=== PATIENT | female | born 1950 | race Caucasian/White ===

== ENCOUNTER 2017-06-14 00:28 | Observation (INO) | payer MEDICARE ==
[2017-06-14] VITALS (7 sets, daily range): BP systolic 106–180; BP diastolic 43–90
[~2017-06-14] VITALS: Ht 175.3 cm; Wt 88.5 kg
[2017-06-14 00:49] LABS: BASOPHILS % 0.7 % (0.0-1.0); EOSINOPHILS # (AUTO) 0.2 (0.0-0.4); EOSINOPHILS % 3.9 % (0.0-6.0); HEMATOCRIT 34.9 % (34.2-44.1); HEMOGLOBIN 11.5 g/dL (12.0-16.0); MEAN CORPUSCULAR HEMOGLOBIN 31.2 pg (28-32); MEAN CORPUSCULAR VOLUME 94.6 fL (81-99); MONOCYTES # (AUTO) 0.5 (0.2-0.8); MONOCYTES % 8.7 % (4.4-11.3); NEUTROPHILS # (AUTO) 3.1 (2.1-6.9); NEUTROPHILS % 52.5 % (38.7-80.0); PLATELET COUNT 141 x10e3/uL (140-360); RED BLOOD COUNT 3.69 x10e6/uL (3.6-5.1); RED CELL DISTRIBUTION WIDTH 12.9 % (11.7-14.4)
[2017-06-14 01:01] LABS: PARTIAL THROMBOPLASTIN TIME 22.8 seconds (23.8-35.5); PROTHROMBIN TIME 12.4 seconds (11.9-14.5)
[2017-06-14 01:10] LABS: ALANINE AMINOTRANSFERASE 18 IU/L (0-55); ALBUMIN 3.8 g/dL (3.5-5.0); ALBUMIN/GLOBULIN RATIO 1.6 (0.8-2.0); ALKALINE PHOSPHATASE 156 IU/L (40-150); ANION GAP 13.9 mmol/L (8-16); BLOOD UREA NITROGEN 22 mg/dL (7-26); BUN/CREATININE RATIO 20 (6-25); CALCIUM 9.1 mg/dL (8.4-10.2); CARBON DIOXIDE 25 mmol/L (22-29); CHLORIDE 102 mmol/L (98-107); CREATINE KINASE 52 IU/L (29-168); EST GLOMERULAR FILTRATION RATE 50 ML/MIN (60-); GLUCOSE 111 mg/dL (74-118); POTASSIUM 3.9 mmol/L (3.5-5.1); SODIUM 137 mmol/L (136-145)
[2017-06-14] MEDS ORDERED: BUSPIRONE HCL10 MG PO (01:47)
[2017-06-14] MEDS ORDERED: AMLODIPINE BESY10 MG PO (01:47)
[2017-06-14] MEDS ORDERED: OXCARBAZEPINE600 MG PO (01:47)
[2017-06-14] MEDS ORDERED: LEVOTHYROXINE88 MCG PO (01:47)
[2017-06-14] MEDS ORDERED: CLONAZEPAM1 MG PO (01:47)
[2017-06-14] MEDS ORDERED: BUSPIRONE HCL15 MG PO (01:47)
[2017-06-14] MEDS ORDERED: QUETIAPINE FUM100 MG PO (01:47)
[2017-06-14] MEDS ORDERED: BENICAR40 MG PO (01:47)
[2017-06-14] MEDS ORDERED: FLUOXETINE HCL20 MG PO (01:47)
[2017-06-14] MEDS ORDERED: GABAPENTIN300 MG PO (01:47)
[2017-06-14] MEDS ORDERED: PRAVASTATIN SOD20 MG PO (01:47)
[2017-06-14] MEDS ORDERED: FLUOXETINE HCL40 MG PO (01:47)
--- NOTE | 2017-06-14 01:54 | Diagnostic Imaging Report ---
EXAMINATION: CHEST SINGLE (PORTABLE) INDICATION: Syncopal episode COMPARISON: None FINDINGS: TUBES and LINES: None. LUNGS: Lungs are well inflated. Lungs are clear. There is no evidence of pneumonia or pulmonary edema. PLEURA: No pleural effusion or pneumothorax. HEART AND MEDIASTINUM: The cardiomediastinal silhouette is unremarkable. BONES AND SOFT TISSUES: No acute osseous lesion. Soft tissues are unremarkable. UPPER ABDOMEN: No free air under the diaphragm. IMPRESSION: No acute thoracic abnormality. Signed by: Dr. Rayo Shah M.D. on 06/14/2017 1:50 AM
[2017-06-14 01:57] LABS: BILIRUBIN,URINE NEGATIVE (NEGATIVE); CLARITY,URINE CLEAR (CLEAR); COLOR,URINE YELLOW (YELLOW); KETONES,URINE NEGATIVE (NEGATIVE); LEUKOCYTE ESTERASE ,URINE NEGATIVE (NEGATIVE); NITRITE,URINE NEGATIVE (NEGATIVE); PROTEIN,URINE DIPSTICK NEGATIVE (NEGATIVE); URINE UROBILINOGEN 0.2 mg/dL (0.2 - 1)
--- NOTE | 2017-06-14 02:25 | Diagnostic Imaging Report ---
Examination: CT head without contrast Clinical Indication: Syncope. Technique: Transaxial noncontrast images from the skull base through the vertex were obtained. Sagittal and coronal reformatted images were done. Comparison: None. Findings: Scalp: No abnormalities. Bones: Intact. No fractures. No blastic or lytic lesions. Brain sulci: Mild volume loss for patient's age. Ventricles: No hydrocephalus. Extra-axial space: No abnormalities. Parenchyma: There are mild confluent areas of low-attenuation within subcortical and periventricular white matter, nonspecific, but could represent microvascular ischemic disease. Chronic lacunar infarct of the anterior limb of the left internal capsule. No masses, hemorrhage, or acute or chronic cortical based vascular insults. Suprasellar region: No abnormalities. Craniocervical junction: The foramen magnum is patent. No Chiari one malformation. Impression: 1. No acute intracranial finding. 2. Mild chronic microvascular ischemic change and volume loss. Signed by: Dr. Christen Oliveira M.D. on 06/14/2017 2:21 AM
[2017-06-14] MEDS ORDERED: ONDANSETRON HCL INJ 2 MG/ML VIAL IV PRN ×4 (02:45→15:15)
--- OUTSIDE RECORDS SUMMARY | 2017-06-14 02:46 | XMS REPORT ---
Author Author [facility] Address Unknown Phone Unavailable Care Team Providers Care Swahili Teacher Name Role Phone ALEC NÚÑEZ Unavailable Unavailable Problems This patient has no known problems. Allergies, Adverse Reactions, Alerts This patient has no known allergies or adverse reactions. Medications This patient has no known medications. Results Test Description Test Time Test Comments Text Results Atomic Results Result Comments CHEST SINGLE (PORTABLE) [place] [id number] Patient Name: MARTELL DELANEY MR #: [id number] : 1950 Age/Sex: 66/F Req #: [id number] Adm Physician: Ordered by: ALEC NÚÑEZ MD Report #: [id number] Location: ER Room/Bed: ___ Procedure: [id number] DX/CHEST SINGLE (PORTABLE) Exam Date: 06/14/17 Exam Time: 0100 REPORT STATUS: Signed EXAMINATION: CHEST SINGLE (PORTABLE) INDICATION: Syncopal episode COMPARISON: None FINDINGS: TUBES and LINES: None. LUNGS: Lungs are well inflated. Lungs are clear. There is no evidence of pneumonia or pulmonary edema. PLEURA: No pleural effusion or pneumothorax. HEART AND MEDIASTINUM: The cardiomediastinal silhouette is unremarkable. BONES AND SOFT TISSUES: No acute osseous lesion. Soft tissues are unremarkable. UPPER ABDOMEN: No free air under the diaphragm. IMPRESSION: No acute thoracic abnormality. Signed by: Dr. Rayo Shah M.D. on 06/14/2017 1:50 AM Dictated By: RAYO CRUZ MD 9 COPY TO: ALEC NÚÑEZ MD CT BRAIN WO [place] [address] Patient Name: MARTELL DELANEY MR #: [id number] : 1950 Age/Sex: 66/F Req #: [id number] Adm Physician: Ordered by: ALEC ÚNÑEZ MD Report #: [id number] Location: ER Room/Bed: Procedure: [id number] CT/CT BRAIN WO Exam Date: 06/14/17 Exam Time: 0050 REPORT STATUS: Signed Examination: CT head without contrast Clinical Indication: Syncope. Technique: Transaxial noncontrast images from the skull base through the vertex were obtained. Sagittal and coronal reformatted images were done. Comparison: None. Findings: Scalp: No abnormalities. Bones: Intact. No fractures. No blastic or lytic lesions. Brain sulci: Mild volume loss for patient's age. Ventricles: No hydrocephalus. Extra-axial space: No abnormalities. Parenchyma: There are mild confluent areas of low-attenuation within subcortical and periventricular white matter, nonspecific, but could represent microvascular ischemic disease. Chronic lacunar infarct of the anterior limb of the left internal capsule. No masses, hemorrhage, or acute or chronic cortical based vascular insults. Suprasellar region: No abnormalities. Craniocervical junction: The foramen magnum is patent. No Chiari one malformation. Impression: 1. No acute intracranial finding. 2. Mild chronic microvascular ischemic change and volume loss. Signed by: Dr. Christen Oliveira M.D. on 06/14/2017 2:21 AM Dictated By: CHRISTEN SERNA MD 0 Transcribed By: SONALI on 06/14/17220 COPY TO: ALEC NÚÑEZ MD
[2017-06-14] MEDS: SODIUM CHLORIDE 0.9% 1000ML 1,000 ML IV SCH ×2 (02:51→10:52)
[2017-06-14] MEDS ORDERED: SODIUM CHLORIDE 0.9% 1000ML 1,000 ML ONE (02:59)
[2017-06-14 03:15] LABS: BACTERIA,URINE FEW /HPF; EPITHELIAL CELLS,URINE RARE /LPF; RBC,URINE 0-5 /HPF (0-5)
[2017-06-14 08:32] LABS: CREATINE KINASE 47 IU/L (29-168)
[2017-06-14] MEDS ORDERED: AMLODIPINE BESYLATE 5 MG TAB PO SCH ×3 (09:00→17:00)
[2017-06-14] MEDS ORDERED: METOPROLOL SUCCINATE 25 MG TAB XL PO SCH ×3 (09:00→17:00)
[2017-06-14] MEDS ORDERED: AMLODIPINE BESYLATE 5 MG TAB PO ONE (09:00)
[2017-06-14] MEDS ORDERED: METOPROLOL SUCCINATE 25 MG TAB XL PO ONE (09:00)
--- NOTE | 2017-06-14 10:14 | Operative Report ---
DATE OF PROCEDURE: NO DICTATION, LENGTH 0:1 Job#: [id number] RI
--- NOTE | 2017-06-14 10:37 | Consultation ---
DATE OF CONSULTATION: June 14, 2017 CARDIAC CONSULTATION REASON FOR CONSULTATION: Syncope. HISTORY: A 66-year-old lady who is known with hypertension, bipolar disorder and PTSD syndrome, as well as anxiety. The patient yesterday, she was sleepy. She woke up to take a snack. She went to the fridge and then she started feeling not so good. She sat on the floor and then she passed out. There was no seizure activity. There was no incontinence of urine. However, this was not a witnessed episode. Interestingly, she had similar episode 8 months ago where she had a nose fracture, and almost 2 years ago when she had a right ankle fracture. Patient denied having any prior seizure disorder. She denied having any prior cardiac history, i.e., no myocardial infarction. She does have some easy fatigability and shortness of breath on exertion, class early III [place] Heart Association classification. There is no orthopnea and there is no paroxysmal nocturnal dyspnea. There is no history of palpitations. Three episodes total of syncope. There is no recent travel. There is no swelling of the lower extremities. There is no cough. No hemoptysis. REVIEW OF SYSTEMS GENERAL: No fever. No chills. CARDIAC: As per above. PULMONARY: As per above. GI: Chronic constipation. No hematemesis. No melena. She takes MiraLAX sometime for this constipation. Occasional nausea but no vomiting. : Increased frequency of urination, but no hematuria. No dysuria. MUSCULOSKELETAL: Aches and pains in several muscles. NEUROLOGICAL: No seizure activity. No localized weakness. PSYCHIATRIC: The patient is on several medications and several illnesses. SOCIAL HISTORY: She lives with her daughter. She denies smoking or drinking. HOME MEDICATIONS: Long list includin. Metoprolol 50 mg twice a day. 2. Norvasc 10 mg a day. 3. Levothyroxine 88 mcg a day. 4. Benicar 40 mg a day. 5. Pravastatin 20 mg a day. 6. Clonazepam 1 mg a day. 7. 50 mg a day. 8. Paxil 40 mg a day. 9. Neurontin 300 mg t.i.d. 10. Oxcarbazepine 600 mg twice a day. 11. Seroquel 100 mg a day. ALLERGIES: CIPRO. PAST MEDICAL HISTORY 1. Hypertension. 2. Bipolar disorder. 3. PTSD. 4. Anxiety. 5. Tonsillectomy. 6. Appendectomy. 7. Hysterectomy. FAMILY HISTORY: Father of Alzheimer, but had congestive heart failure. He was 74. Mother in her 70s, questionable cause. She does have 6 siblings, 3 brothers and 3 sisters. She does not know much about their health problems. She does have 1 son and 1 daughter who is diabetic. PHYSICAL EXAMINATION VITALS: Height of 5 feet 9 inches, weight of 195 pounds. Blood pressure 136/80, heart rate of 50, respiratory rate of 18, temperature of 96.7 Fahrenheit. HEENT: Pupils are equal and reactive. NECK: No elevation of jugular venous pulsation. No bruit. CHEST: Clear to auscultation and percussion. HEART: PMI in 5th left intercostal space. Normal 1st and 2nd heart sounds. ABDOMEN: Soft. There is good bowel sounds. No organomegaly. No abdominal bruits. EXTREMITIES: No cyanosis. No clubbing. No edema. NEUROLOGIC: Awake, alert and oriented. Neck is supple. No motor or sensory deficits. LAB DATA: Sodium of 137, potassium 3.9, BUN 22, creatinine 1.1. White blood cell count of 5.9, hemoglobin of 11.5, hematocrit 35%, and platelet count of 141,000. EKG showing sinus bradycardia, nonspecific S/T changes. IMPRESSION AND PLAN 1. Syncope. 2. Hypertension. 3. Bipolar disorder/posttraumatic stress disorder and anxiety. 4. Obesity. 5. Poorly compliant. Her syncope is very vague. It is multifactorial. We cannot pinpoint the etiology. Acardiac syncope needs to be ruled out. Patient will be on telemetry. Will get an echocardiogram. Will get carotid Doppler. Patient is really truly on polypharmacy. Regarding her antihypertensive medication, definitely the need to be adjusted and decreased to minimum. Hopefully, that will help with her symptoms. Will get her blood pressure lying, standing and sitting. Will review her echocardiogram, which is already ordered, and will review her carotid Doppler. Differential diagnosis discussed and explained to the patient. Job#: [id number] JE
[2017-06-14] MEDS ORDERED: ACETAMINOPHEN 325 MG TAB PO PRN ×3 (11:15→20:45)
--- NOTE | 2017-06-14 12:36 | History and Physical ---
CHIEF COMPLAINT: Dizziness and passed out. HPI: Mr. Flores is a 66-year-old female. She came to the emergency room because she felt dizzy and passed out on the floor. She reports that she woke up from her sleep and was feeling dizzy. She went to the kitchen and felt more dizzy so she laid down on the floor. Then she does not remember. She passed out. She denies any complaints of chest pain, nausea, vomiting, diarrhea, shortness of breath. She smoked for 20-plus years 2 packs per day. She is being worked up for mild dementia. In the emergency room, she was in sinus bradycardia. She denies any nausea, vomiting, diarrhea or focal weakness. REVIEW OF SYSTEMS GENERAL: Denies any fever or chills. HEAD: Denies any head trauma. ENT: Denies any earache. CVS: Denies any chest pain. RESPIRATORY: Denies any shortness of breath. GI: Denies any nausea or vomiting. OTHER: The rest of the review systems are negative except as in HPI. PAST MEDICAL HISTORY: Hypertension and hypercholesterolemia. SURGICAL HISTORY: Hysterectomy. FAMILY AND SOCIAL HISTORY: Ex-smoker, quit 7 years ago, smoked for 20 years 2 packs per day. Used to work for [employer]. Currently lives with her daughter. She denies any alcohol use. PHYSICAL EXAMINATION VITAL SIGNS: Temperature 96.7. Pulse of 56. Blood pressure 136/88. Respiratory rate of 18. O2 sat 94%. SKIN: Warm and dry. HEENT: Head atraumatic, normocephalic. Pupils are reactive. NECK: Supple. CHEST: Clear to auscultation bilaterally. No wheezing. No crackles. HEART: S1, S2 audible. ABDOMEN: Soft, nontender, nondistended. Bowel sounds audible. EXTREMITIES: No clubbing, cyanosis or edema. NEUROLOGIC: Awake and alert. No focal neurologic deficit. LABS: White count of 5.8, hemoglobin 11.5, platelets 141. Chemistry is within normal limits. Brain CT was done in the emergency room which showed no acute findings. Chest x-ray done in the emergency room showed no acute findings. EKG showing sinus bradycardia. ASSESSMENT: A 66-year-old female with syncope, etiology not very clear. She was bradycardic in the emergency room. Could be just hypoglycemia but she did not eat much overnight. PLAN 1. Cardiology consult. 2. Neurology consult. 3. Continue IV hydration. 4. Continue metoprolol and amlodipine. Job#: [id number]
[2017-06-14] MEDS ORDERED: FLUOXETINE HCL 20 MG CAP PO SCH ×2 (13:30→13:52)
[2017-06-14] MEDS ORDERED: BUSPIRONE HCL 5 MG TAB PO SCH ×2 (13:30→13:51)
[2017-06-14] MEDS ORDERED: SODIUM CHLORIDE 0.9% 1000ML 1,000 ML IV SCH ×3 (14:00→20:45)
[2017-06-14] MEDS ORDERED: GABAPENTIN 300 MG CAP PO SCH ×4 (15:00→21:00)
[2017-06-14 16:40] LABS: CREATINE KINASE 135 IU/L (29-168)
[2017-06-14] MEDS ORDERED: OXCARBAZEPINE 300 MG TAB PO SCH ×3 (17:00)
[2017-06-14] MEDS ORDERED: ONDANSETRON HCL 4 MG ORAL DISINTEGRATING TAB PO PRN ×3 (20:15→22:15)
[2017-06-14] MEDS ORDERED: QUETIAPINE FUMARATE 100 MG TAB PO SCH ×2 (21:00)
[2017-06-14] MEDS ORDERED: CLONAZEPAM 1 MG TAB PO SCH ×2 (21:00)
[2017-06-15] VITALS (7 sets, daily range): BP systolic 102–177; BP diastolic 55–94
[2017-06-15] MEDS: SODIUM CHLORIDE 0.9% 1000ML 1,000 ML IV SCH ×4 (03:19→21:12)
[2017-06-15 05:44] LABS: BASOPHILS # (AUTO) 0.1 (0.0-0.1); EOSINOPHILS # (AUTO) 0.2 (0.0-0.4); EOSINOPHILS % 3.2 % (0.0-6.0); HEMATOCRIT 29.2 % (34.2-44.1); HEMOGLOBIN 9.7 g/dL (12.0-16.0); LYMPHOCYTES # (AUTO) 2.1 (1.0-3.2); LYMPHOCYTES % 39.4 % (18.0-39.1); MEAN CORPUSCULAR HEMOGLOBIN 31.6 pg (28-32); MEAN CORPUSCULAR HGB CONC 33.2 g/dL (31-35); MEAN CORPUSCULAR VOLUME 95.1 fL (81-99); MONOCYTES # (AUTO) 0.4 (0.2-0.8); MONOCYTES % 7.4 % (4.4-11.3); NEUTROPHILS # (AUTO) 2.6 (2.1-6.9); NEUTROPHILS % 48.8 % (38.7-80.0); PLATELET COUNT 129 x10e3/uL (140-360); RED BLOOD COUNT 3.07 x10e6/uL (3.6-5.1); RED CELL DISTRIBUTION WIDTH 13.2 % (11.7-14.4)
[2017-06-15] MEDS ORDERED: LEVOTHYROXINE SODIUM 88 MCG TAB PO SCH ×5 (06:00→09:00)
[2017-06-15] MEDS: LEVOTHYROXINE SODIUM 88 MCG TAB PO SCH (06:00)
[2017-06-15 06:10] LABS: ALANINE AMINOTRANSFERASE 10 IU/L (0-55); ALBUMIN 2.4 g/dL (3.5-5.0); ALBUMIN/GLOBULIN RATIO 1.5 (0.8-2.0); ALKALINE PHOSPHATASE 97 IU/L (40-150); ANION GAP 7.4 mmol/L (8-16); BLOOD UREA NITROGEN 14 mg/dL (7-26); BUN/CREATININE RATIO 21 (6-25); CARBON DIOXIDE 16 mmol/L (22-29); CHLORIDE 119 mmol/L (98-107); CREATININE, SERUM 0.68 mg/dL (0.57-1.11); EST GLOMERULAR FILTRATION RATE > 60 ML/MIN (60-); GLUCOSE 76 mg/dL (74-118); POTASSIUM 3.4 mmol/L (3.5-5.1); SODIUM 139 mmol/L (136-145)
[2017-06-15 06:21] LABS: CALCIUM 6.2 mg/dL (8.4-10.2)
[2017-06-15] MEDS ORDERED: CALCIUM GLUCONATE 10% INJ 0.465 MEQ/ML VIAL ONE (06:51)
[2017-06-15] MEDS ORDERED: SODIUM CHLORIDE 0.9% 50ML 50 ML ONE (06:52)
[2017-06-15] MEDS ORDERED: POTASSIUM CHLORIDE 20 MEQ TAB CR PO ONE (07:15)
[2017-06-15] MEDS ORDERED: CALCIUM GLUCONATE 10% INJ 4.65 MEQ in SODIUM CHLORIDE 0.9% 50ML 50 ML IV ONE (07:30)
[2017-06-15] MEDS ORDERED: FLUOXETINE HCL 20 MG CAP PO SCH (09:00)
[2017-06-15] MEDS ORDERED: BUSPIRONE HCL 5 MG TAB PO SCH ×2 (09:00)
[2017-06-15] MEDS ORDERED: AMLODIPINE BESYLATE 5 MG TAB PO SCH ×2 (09:00)
[2017-06-15] MEDS ORDERED: METOPROLOL SUCCINATE 25 MG TAB XL PO SCH ×2 (09:00)
[2017-06-15] MEDS: ACETAMINOPHEN 325 MG TAB PO PRN ×2 (09:00→21:12)
[2017-06-15] MEDS ORDERED: OXCARBAZEPINE 300 MG TAB PO SCH (09:00)
[2017-06-15] MEDS ORDERED: CLONAZEPAM 1 MG TAB PO SCH ×3 (09:00)
[2017-06-15] MEDS ORDERED: QUETIAPINE FUMARATE 100 MG TAB PO SCH ×3 (09:00)
[2017-06-15] MEDS ORDERED: POTASSIUM CHLORIDE 20 MEQ TAB CR PO PRN (09:45)
[2017-06-15] MEDS: ASPIRIN 81 MG ENTERIC COATED PO SCH (10:30)
[2017-06-15] MEDS: OXCARBAZEPINE 300 MG TAB PO SCH ×2 (10:50→21:12)
[2017-06-15] MEDS: FLUOXETINE HCL 20 MG CAP PO SCH (10:50)
[2017-06-15] MEDS: BUSPIRONE HCL 5 MG TAB PO SCH (10:50)
[2017-06-15] MEDS: GABAPENTIN 300 MG CAP PO SCH ×3 (10:50→21:12)
[2017-06-15 11:05] LABS: FERRITIN 32.64 ng/mL (4.63-204.00)
[2017-06-15 11:09] LABS: FREE THYROXINE INDEX 0.7608 (1.4-3.8)
--- NOTE | 2017-06-15 11:26 | Consultation ---
DATE OF CONSULTATION: June 14, 2017, at 5:30 in the evening. NEUROLOGICAL CONSULTATION ATTENDING PHYSICIAN: Dr. Osvaldo Reeves. REASON FOR CONSULTATION: Syncopal spell. HISTORY OF PRESENT ILLNESS: This is a 66-year-old female with multiple medical problems, who lives with her daughter, and last night apparently around 12:30 in the morning she woke up and went to the kitchen and suddenly started does not feel good, she feels weak, and apparently she passed out. They called the ambulance, and they brought her to the hospital. According to the daughter, there was not any jerking of the arms and legs, no eyes rolled back, no foaming from the mouth, no tongue-biting, no sphincter dysfunction. Patient has had previous episodes of the blackout spell like this. One was several years ago a similar way, woke up in the middle of the night and stood up and then blacked out. At one time she was taken to [facility] where she was there for a couple of days and was seen by a tobacco sample puller and neurologist, and they did not find anything. Then she had the second spell several months ago in which she broke the right foot. The patient has no previous history of seizures and no family history of seizures. She does have multiple medical problems including bipolar disorder which has been followed by tobacco sample puller and several prior psychiatrists. The first episode of general seizures, and the one that was definite seizure was secondary to Xanax withdrawal. The second time, which the daughter said there was tonic-clonic activity and sphincter dysfunction, was secondary to lithium intoxication. Since then she has not had any more seizures and normal blood count until now. One time in one of these spells, the daughter said the ambulance arrived and she was told that her pulse went down to 32. PAST MEDICAL HISTORY: Besides hypertension and bipolar disorder, has anxiety. Has had appendectomy, hysterectomy. MEDICATION SHE HAS BEEN TAKING: Seroquel, BuSpar, clonazepam, Paxil, gabapentin, metoprolol for her blood pressure and Norvasc for her blood pressure. FAMILY HISTORY: No family history of seizures. ALLERGIES: CIPRO. REVIEW OF SYSTEMS: All 12 steps negative except what is described above. GENERAL PHYSICAL EXAMINATION VITAL SIGNS: Blood pressure 130/80, pulse 72 regular, afebrile. LUNGS: Clear to auscultation. HEART: Regular sinus rhythm. There was no murmur. ABDOMEN: Soft. No tenderness. MUSCULOSKELETAL: Lower extremities no edema, no cyanosis, no clubbing. NEUROLOGIC Mental status: According to the daughter, she has some short-term memory. She has been forgetful. As a matter of fact, she has seen a neurologist who feels that she has an early dementia and is going to further cognitive tests to confirm dementia and to start treatment. Speech clear, no dysarthria or dysphagia. Follows commands well. Right/left orientation is normal. Naming body parts and recall is normal. Cranial nerves: Pupils were both equal and reactive. External ocular movements were full. There was no nystagmus. Visual field on confrontation was grossly normal. No facial weakness. Facial sensation normal. Tongue protrudes midline. Motor power: No evidence of weakness in either of the upper extremities. Able to elevate against gravity without any difficulty. On postural holding, we see some fine regular tremor 4-6 Hz in both hands and also regular same type of tremor of both feet. The patient has been diagnosed with possible essential tremor, possible early Parkinson. There is not any problem with the patient moving around. No bradykinesia of the arms or legs. No rigidity. Deep tendon reflexes: Triceps, biceps, radials 1+. Knee jerks 1+. Ankle jerks were absent bilaterally. Plantar stimulation is down bilaterally. HEAD: Normocephalic. NECK: Supple. Carotid pulsations were present bilaterally. There were no bruits. GAIT: Deferred. LABORATORY WORKUP: All has been reviewed in detail. ASSESSMENT: A 66-year-old female with an episode of syncope early this morning with previous history of blackout spell in similar way and one other episode with generalized seizure which apparently was secondary to Xanax withdrawal and another time for lithium intoxication for her bipolar disorder. We discussed about different etiologies of seizures. At one time the daughter mentioned that her heart rate dropped to 32. That is one of the possibilities we are dealing with some cardiac arrhythmia. I do not think we are dealing with any real epileptic seizure, neither evidence to suspect a TIA. She has been worked up before. Everything has been normal. I do not think we need to do any tests at the present time. IMPRESSION 1. Syncopal spell, unspecified. 2. Hypertension, essential. 3. Bipolar disorder. 4. Obesity. 5. Bilateral tremors of the hands and feet, probably essential tremor. RECOMMENDATION: Patient has been already scheduled to see her neurologist. No need to put her on any medication at the present time immediately before the testing. Job#: [id number] EV
[2017-06-15 11:31] LABS: CALCIUM IONIZED 1.2 mmol/L (1.09-1.30)
[2017-06-15] MEDS ORDERED: LIDOCAINE HCL 2% LOCAL 20 ML VIAL ONE (17:34)
[2017-06-15] MEDS ORDERED: IOPAMIDOL 300MG/ML 50ML INFUS..BTL IV ONE (17:34)
[2017-06-15] MEDS ORDERED: SODIUM CHLORIDE 0.9% 1000ML 2,000 ML ONE (17:35)
[2017-06-15] MEDS ORDERED: MIDAZOLAM HCL 2 MG/2 ML VIAL ONE ×2 (17:43→18:01)
[2017-06-15] MEDS ORDERED: BACITRACIN 50,000 UNIT VIAL ONE (17:44)
[2017-06-15] MEDS ORDERED: FENTANYL CITRATE/PF 100MCG/2 ML INJ ONE (17:44)
--- NOTE | 2017-06-15 17:45 | Progress Note ---
DATE: June 15, 2017 NEUROLOGIC PROGRESS NOTE A 66-year-old female with multiple medical problems with diagnosis of syncopal spell, unspecified, many times, hypertension, essential, bipolar disorder, bilateral tremors of hands and feet, most likely essential tremor, and questionable seizures. At the present time, the patient is feeling better. She is being evaluated by cardiology where they found that definitely she has significant bradykinesia with pulse in the range of 30's. She is scheduled for a pacemaker. OBJECTIVE VITAL SIGNS: Blood pressure 152/91, pulse 34, temperature 95.9. NEURO: She is alert. Speech clear. Follows commands well. No episodes of dizziness or syncope today. Moving all 4 extremities symmetrically. No evidence of focal weakness. LABORATORY DATA: CBC: White count 5250, hemoglobin 9.7, hematocrit 29.2, platelets 129,000. Chemistry: Sodium 139, potassium 3.4, BUN 14, creatinine 0.68. Estimated GFR 60. Calcium quite low at 6.2. DIAGNOSIS: As above. Will continue to follow closely. Job#: [id number]
[2017-06-15] MEDS ORDERED: SODIUM CHLORIDE 0.9% 500ML 500 ML ONE (17:46)
[2017-06-15] MEDS ORDERED: VANCOMYCIN 1GM/NS 250 ML 250 ML ONE (17:51)
[2017-06-15] MEDS: CLONAZEPAM 1 MG TAB PO SCH (21:12)
[2017-06-15] MEDS: QUETIAPINE FUMARATE 100 MG TAB PO SCH (21:12)
[2017-06-16 04:00] VITALS: BP 129/74
[2017-06-16] MEDS: LEVOTHYROXINE SODIUM 88 MCG TAB PO SCH (06:07)
[2017-06-16] MEDS: SODIUM CHLORIDE 0.9% 1000ML 1,000 ML IV SCH ×3 (06:07→22:15)
[2017-06-16 08:00] VITALS: BP 158/87
[2017-06-16] MEDS: OXCARBAZEPINE 300 MG TAB PO SCH ×2 (09:00→21:00)
[2017-06-16] MEDS: ASPIRIN 81 MG ENTERIC COATED PO SCH (09:00)
[2017-06-16] MEDS: FLUOXETINE HCL 20 MG CAP PO SCH (09:00)
[2017-06-16] MEDS: BUSPIRONE HCL 5 MG TAB PO SCH (09:00)
[2017-06-16] MEDS: GABAPENTIN 300 MG CAP PO SCH ×3 (09:00→21:00)
[2017-06-16 12:00] VITALS: BP 156/98
--- NOTE | 2017-06-16 12:06 | Operative Report ---
DATE OF PROCEDURE: June 15, 2017 PREPROCEDURE DIAGNOSIS: Symptomatic bradycardia, sinus node dysfunction with dizziness, no reversible causes. POSTPROCEDURE DIAGNOSIS: Symptomatic bradycardia, sinus node dysfunction with dizziness, no reversible causes. ESTIMATED BLOOD LOSS: 5 mL. COMPLICATIONS: None. PROCEDURES PERFORMED 1. Dual-chamber pacemaker placement. 2. Moderate sedation. 3. Moderate conscious sedation was provided under my direct supervision by a sedation-trained nurse. 4. Sedation approximate time 30 minutes with Versed and Fentanyl. There were no complications. See sedation report for details. DESCRIPTION OF PROCEDURE: After informed consent was obtained, patient was brought to the electrophysiology laboratory in a fasting, nonsedated state. Area over his chest was prepped and draped in the usual sterile fashion. Moderate sedation and prophylactic antibiotic were given. Lidocaine 1% was used as local anesthetic and a 3 cm skin incision was made in the right subclavicular area. Electrocautery, sharp and blunt dissection were used to reach the muscular fascia and a pocket was created for eventual implantation of the device. Vascular access was obtained times 2 in the left axillary vein using the modified Seldinger technique under fluoroscopic guidance. Two 6-Belgian sheaths were placed. The ventricular lead advanced to the RV apex. R wave 15, pacing 0.5 at 0.5, impedance 859. Atrial lead to the right atrial appendage. P-wave 3.8, pacing 1.1 at 0.5. Impedance 593. The sheaths were removed from the body. Leads were secured to the fascia using 0 silk. Pocket was irrigated with antibiotic solution using a pulse steel erecting pusher. Hemostasis was meticulous. Leads were connected to the device and the entire pacemaker system placed in the pocket. The incision was closed using Vicryl and Dermabond. The patient tolerated the procedure well. Procedure was deemed complete. SUMMARY OF HARDWARE IMPLANTED 1. The new pacemaker is [employer], Model #[id number], [id number]. 2. The atrial lead is [employer], 7704, [id number]. 3. The right ventricular lead is [employer], 7760, [id number]. IMPRESSION: Successful dual-chamber pacemaker implant via left axillary vein. PLAN 1. Routine postop monitoring in telemetry bed. 2. Chest x-ray. 3. Followup in 2 weeks. Job#: [id number]
[2017-06-16 16:00] VITALS: BP 177/87
[2017-06-16 20:00] VITALS: BP 167/106
[2017-06-16] MEDS: QUETIAPINE FUMARATE 100 MG TAB PO SCH (21:00)
[2017-06-16] MEDS: CLONAZEPAM 1 MG TAB PO SCH (21:00)
[2017-06-16] MEDS ORDERED: AMLODIPINE BESYLATE 5 MG TAB PO ONE (22:00)
[2017-06-17] VITALS: BP 129/80
[2017-06-17 04:00] VITALS: BP 161/91
[2017-06-17] MEDS: LEVOTHYROXINE SODIUM 88 MCG TAB PO SCH (06:00)
[2017-06-17] MEDS: SODIUM CHLORIDE 0.9% 1000ML 1,000 ML IV SCH (06:15)
[2017-06-17 08:00] VITALS: BP 153/96
[2017-06-17] MEDS: BUSPIRONE HCL 5 MG TAB PO SCH (08:00)
[2017-06-17] MEDS: OXCARBAZEPINE 300 MG TAB PO SCH (08:00)
[2017-06-17] MEDS: ASPIRIN 81 MG ENTERIC COATED PO SCH (08:00)
[2017-06-17] MEDS: FLUOXETINE HCL 20 MG CAP PO SCH (08:00)
[2017-06-17] MEDS: GABAPENTIN 300 MG CAP PO SCH (08:00)
[2017-06-17] MEDS ORDERED: AMLODIPINE BESYLATE 5 MG TAB PO SCH (09:00)
[2017-06-17] MEDS: AMLODIPINE BESYLATE 5 MG TAB PO SCH ×2 (09:30→12:15)
[2017-06-17 10:15] LABS: CHOL/HDL RATIO 3.3 (3.0-3.6)
[2017-06-17 12:00] VITALS: BP 164/104
--- NOTE | 2017-06-17 13:12 | Discharge Summary ---
FINAL DIAGNOSES 1. Symptomatic sinus bradycardia with sinus node dysfunction. 2. Syncope and dizziness due to sinus bradycardia. 3. Bipolar disorder. 4. Hypertension. 5. Hypothyroidism. ADMISSION HISTORY AND HOSPITAL COURSE: Ms. Flores is a 66-year-old female who was admitted by me with dizziness and passing out. She was found to have heart rate of 55 in the emergency room. She was put on telemetry. Dr. Holloway was consulted and the patient was found to be severely bradycardiac in the 20s. Dr. Dooley was consulted and he evaluated the patient. Pacemaker was placed. The patient has been doing well since the pacemaker was placed. Cardiology has cleared the patient for discharge. She will be discharged home to follow up with her primary care physician and cardiology. DISCHARGE MEDICATIONS: List is attached and reviewed. GABRIELA GERMAIN MD Job#: [id number]
--- NOTE | 2017-06-17 13:23 | Consultation ---
DATE OF CONSULTATION: June 15, 2017 REASON FOR CONSULT: Bradycardia, dizziness. HISTORY OF PRESENT ILLNESS: This is a 66-year-old woman with history of hypertension, history of depression. She had been taking beta blockers, low-dose metoprolol, who presented with progressive dizziness, had a near syncopal episode, found to be bradycardic with heart rate in the 20s. She was admitted for observation. The metoprolol was discontinued. Patient continued to have profound bradycardia with heart rate in the 20s and 30s despite holding the beta alisa. We were consulted to consider a pacemaker. Patient reports being tired and dizzy over the last 6 to 8 months. No syncope. REVIEW OF SYSTEMS: CONSTITUTIONAL: Negative. CARDIOVASCULAR: As per HPI. RESPIRATORY: Negative. GASTROINTESTINAL: Negative. GENITOURINARY: Negative. MUSCULOSKELETAL: Negative. EYES: Negative. ENT: Negative. ALLERGY/IMMUNOLOGY: Negative. PSYCHIATRY: Negative. PAST MEDICAL HISTORY: Hypertension. SURGICAL HISTORY: Negative. SOCIAL HISTORY: No smoking, alcohol, or illicit drugs. FAMILY HISTORY: No premature coronary artery disease. PHYSICAL EXAMINATION: VITAL SIGNS: Blood pressure 130/60, pulse 38, respiration 20, O2 sat is 98%. GENERAL: In no acute distress. HEENT: Moist mucous membranes. CARDIOVASCULAR: Regular. RESPIRATORY: Clear. ABDOMEN: Soft. MUSCULOSKELETAL: 2+ distal pulses. NEUROLOGICAL: No focal deficit. SKIN: No lesions. PSYCHIATRY: Normal thought process. EKG: Sinus bradycardia. IMPRESSION: 1. Symptomatic bradycardia, sinus node dysfunction, no reversible causes, persisted despite holding the medicines. 2. Dizziness. 3. Near syncope. RECOMMENDATIONS: Discussed with the patient. Explained the procedure in detail with benefits and risks. Patient voices understanding and wishes to proceed. Will plan for a dual-chamber pacemaker placement. Thank you for letting us participate in Ms. [facility]. Job#: [id number]
[2017-06-17] MEDS ORDERED: PRAVASTATIN 20 MG TAB PO SCH (21:00)
[2017-06-18] MEDS ORDERED: AMLODIPINE BESYLATE 5 MG TAB PO SCH (09:00)
== END 2017-06-17 12:50 | disposition home or self-care (01) ==
LOC: ER 00:28 → MED/SURG2 02:43
PROVIDERS: ADMIT Internal Medicine Pulmonary Disease; ATTEND Internal Medicine Pulmonary Disease
PROC: 0JH606Z Insertion of Pacemaker, Dual Chamber into Chest Subcutaneous Tissue and Fascia, Open Approach (ICD-10-PCS; principal; 2017-06-15)
PROC: 02H63JZ Insertion of Pacemaker Lead into Right Atrium, Percutaneous Approach (ICD-10-PCS; 2017-06-15)
PROC: 02HK3JZ Insertion of Pacemaker Lead into Right Ventricle, Percutaneous Approach (ICD-10-PCS; 2017-06-15)
DX: I49.5 Sick sinus syndrome (principal); R55 Syncope and collapse; R00.1 Bradycardia, unspecified; I10 Essential (primary) hypertension; E78.00 Pure hypercholesterolemia, unspecified; Z87.891 Personal history of nicotine dependence; F31.9 Bipolar disorder, unspecified; F43.10 Post-traumatic stress disorder, unspecified; E66.9 Obesity, unspecified; Z91.19 Patient's noncompliance with other medical treatment and regimen; R25.1 Tremor, unspecified; E46 Unspecified protein-calorie malnutrition; Z68.28 Body mass index [BMI] 28.0-28.9, adult; E78.5 Hyperlipidemia, unspecified; E03.9 Hypothyroidism, unspecified
CPT/HCPCS: 33208; 36415 ×3; 70450; 71045; 80053 ×2; 80061; 81001; 82330; 82550; 82553; 82728; 82948 ×2; 83540; 84155; 84165; 84436; 84443; 84466; 84479; 84484; 85025 ×2; 85610; 85730; 93005 ×2; 93306; 97116 ×2; 97139; 97161; 99284; C1785; C1898 ×2; G0378 ×4; J0610; J2001; J2250; J3370; J7030 ×3; J7040

== ENCOUNTER 2018-02-01 11:50 | Emergency (ER) | payer MEDICARE ==
[~2018-02-01] VITALS: Ht 175.3 cm; Wt 88.5 kg
[~2018-02-01 11:50] MED LIST: AMLODIPINE BESY10 MG PO; BENICAR40 MG PO; BUSPIRONE HCL10 MG PO; BUSPIRONE HCL15 MG PO; CLONAZEPAM1 MG PO; FLUOXETINE HCL20 MG PO; FLUOXETINE HCL40 MG PO; GABAPENTIN300 MG PO; LEVOTHYROXINE88 MCG PO; OXCARBAZEPINE600 MG PO; PRAVASTATIN SOD20 MG PO; QUETIAPINE FUM100 MG PO
--- OUTSIDE RECORDS SUMMARY | 2018-02-01 11:54 | XMS REPORT | Continuity of Care Document ---
Author Author [facility] Organization [facility] Address Unknown Phone Unavailable Care Team Providers Care Mobile Unit Assistant Name Role Phone MD Jonathan, Felisa HICKS Unavailable Insurance Providers Payer name Policy type / Coverage type Policy ID Covered republican ID Policy Son [place] [employer] [facility] - [employer] - MEDICARE COMPLETE - POS ([employer] [facility] - [employer] - MEDICARE COMPLETE - POS ([employer] [place] [employer] [place] [employer] [place] [employer] [place] [employer] [place] [employer] [place] [employer] [place] [employer] [place] [employer] Encounters Encounter Performer Location Date Office Visit Felisa Castillo MD [facility] July 16, 2014 Problems Problem Effective Dates Problem Status GOITER Jun 16, 2014 Active HYPOTHYROIDISM Jun 16, 2014 Active HYPERTENSION - BENIGN ESSENTIAL Jun 16, 2014 Active PUPILLARY ABNORMALITIES Jun 16, 2014 Active SKIN LESION Jun 16, 2014 Active OTHER SCREENING MAMMOGRAM July 16, 2014 Active SCREENING FOR MALIGNANT NEOPLASMS OF COLON July 16, 2014 Active PHYSICAL EXAM July 16, 2014 Active Procedures Date Description Comments Jun 16, 2014 smoking status Never smoker July 16, 2014 smoking status Never smoker Medications Medication Instructions Start Date Status PEXEVA 20 MG TABS three tablets at bedtime Jun 16, 2014 Active CLONAZEPAM 1 MG TABS one tablets twicw daily Jun 16, 2014 Active SAPHRIS 10 MG SUBL one tablet subl daily Jun 16, 2014 Active OXCARBAZEPINE 300 MG TABS one tablet twice daily Jun 16, 2014 Active LEVOTHYROXINE SODIUM 150 MCG TABS Take 1 pill by mouth once a day Jun 16, 2014 Active AMLODIPINE BESYLATE 10 MG TABS Take 1 pill by mouth once a day Jun 16, 2014 Active ZOSTAVAX 19304 UNT/0.65ML SOLR Administer 0.65 mL intramuscular x1 July 16, 2014 Active Vital Signs Date Description Test Result Jun 16, 2014 weight E&M - 3141-9 WEIGHT 178 lb Jun 16, 2014 height E&M - 8302-2 HEIGHT 69 in Jun 16, 2014 temperature E&M TEMPERATURE 98.7 deg f Jun 16, 2014 blood pressure, systolic - 8480-6 BP SYSTOLIC 155 mm Hg Jun 16, 2014 blood pressure, diastolic - 8462-4 BP DIASTOLIC 92 mm Hg Jun 16, 2014 pulse rate E&M - 8867-4 PULSE RATE 84 /min Jun 16, 2014 respiratory rate E&M - 9279-1 RESP RATE 16 /min Jun 16, 2014 blood pressure, systolic, second observation BP SYS #2 149 mm Hg Jun 16, 2014 blood pressure, diastolic, second observation BP ADAMS #2 99 mm Hg July 16, 2014 weight E&M - 3141-9 WEIGHT 180 lb July 16, 2014 pulse rate E&M - 8867-4 PULSE RATE 60 /min July 16, 2014 temperature E&M TEMPERATURE 98.5 deg f July 16, 2014 respiratory rate E&M - 9279-1 RESP RATE 17 /min July 16, 2014 blood pressure, systolic - 8480-6 BP SYSTOLIC 163 mm Hg July 16, 2014 blood pressure, diastolic - 8462-4 BP DIASTOLIC 97 mm Hg July 16, 2014 blood pressure, systolic, second observation BP SYS #2 156 mm Hg July 16, 2014 blood pressure, diastolic, second observation BP ADAMS #2 84 mm Hg Results Date Description Test Name Value Reference Interpretation Status July 17, 2014 urine color UA COLOR Light Yellow null Yellow July 17, 2014 bacteria, urine microscopy BACTERIA URN Occasional null None Seen Jun 16, 2014 thyroid stimulating hormone, serum TSH 0.044 uIU/mL 0.360-3.740 Low July 17, 2014 cholesterol, serum CHOLESTEROL 191 mg/dl <=199 July 17, 2014 triglyceride, serum, fasting TRIGLYCERIDE 94 mg/dl <=149 July 17, 2014 HDL cholesterol, serum HDL 73 mg/dl >=61 July 17, 2014 LDL cholesterol, serum LDL 99 mg/dl <=99 July 17, 2014 sodium, serum SODIUM 146 MEQ/L mmol/L 135-145 High July 17, 2014 potassium, serum POTASSIUM 4.3 MEQ/L mmol/L 3.5-5.1 July 17, 2014 creatinine, serum CREATININE 1.0 mg/dL 0.5-1.4 July 17, 2014 urea nitrogen, blood BUN 15 mg/dL 7-July 17, 2014 urea nitrogen/creatinine ratio, serum BUN/CREAT 15 null 6-July 17, 2014 albumin, serum ALBUMIN 3.7 g/dL 3.5-5.0 July 17, 2014 calcium, serum CALCIUM 9.3 mg/dL 8.5-10.5 July 17, 2014 alanine aminotransferase (SGPT), serum SGPT (ALT) 18 U/L 0-65 July 17, 2014 aspartate aminotransferase (SGOT), serum SGOT (AST) 9 U/L 0-37 July 17, 2014 alkaline phosphatase, serum ALK PHOS 152 U/L 39-136 High
--- OUTSIDE RECORDS SUMMARY | 2018-02-01 11:54 | XMS REPORT | Continuity of Care Document ---
Author Author [facility] Interface Address Unknown Phone Unavailable Problems Problem Status Onset Date Classification Date Reported Comments Source OTHER SCREENING MAMMOGRAM Active 07/16/2014 Condition 07/17/2014 [facility] SCREENING FOR MALIGNANT NEOPLASMS OF COLON Active 07/16/2014 Condition 07/17/2014 [facility] PHYSICAL EXAM Active 07/16/2014 Condition 07/17/2014 [facility] GOITER Active 06/16/2014 Condition 07/17/2014 [facility] HYPOTHYROIDISM Active 06/16/2014 Condition 07/17/2014 [facility] HYPERTENSION - BENIGN ESSENTIAL Active 06/16/2014 Condition 07/17/2014 [facility] PUPILLARY ABNORMALITIES Active 06/16/2014 Condition 07/17/2014 [facility] SKIN LESION Active 06/16/2014 Condition 07/17/2014 [facility] Syncope Active Problem 06/17/2017 [facility] Medications Medication Details Route Status Patient Instructions Ordering Provider Order Date Source ZOSTAVAX 44535 UNT/0.65ML SOLR Administer 0.65 mL intramuscular x1 Active 07/16/2014 [facility] PEXEVA 20 MG TABS three tablets at bedtime Active 06/16/2014 [facility] CLONAZEPAM 1 MG TABS one tablets twicw daily Active 06/16/2014 [facility] SAPHRIS 10 MG SUBL one tablet subl daily Active 06/16/2014 [facility] OXCARBAZEPINE 300 MG TABS one tablet twice daily Active 06/16/2014 [facility] AMLODIPINE BESYLATE 5 MG TABS 1 tablet daily Active 06/16/2014 [facility] LEVOTHYROXINE SODIUM 150 MCG TABS Take 1 pill by mouth once a day Active 06/16/2014 [facility] LEVOTHYROXINE SODIUM 175 MCG TABS one tablet daily Active 06/16/2014 [facility] AMLODIPINE BESYLATE 10 MG TABS Take 1 pill by mouth once a day Active 06/16/2014 [facility] Amlodipine Besylate 10 Mg Tablet Daily Active [facility] Buspirone Hcl 15 Mg Tablet Daily Active [facility] Clonazepam 1 Mg Tablet Daily Active [facility] Fluoxetine Hcl 20 Mg Capsule Daily Active [facility] Fluoxetine Hcl 40 Mg Capsule Bedtime Active [facility] Gabapentin 300 Mg Capsule Three Times A Day Active [facility] Levothyroxine Sodium 88 Mcg Tablet Daily Active [facility] Olmesartan Medoxomil (Benicar) 40 Mg Tablet Daily Active [facility] Oxcarbazepine 600 Mg Tablet Twice A Day Active [facility] Pravastatin Sodium 20 Mg Tablet Daily Active [facility] Quetiapine Fumarate 100 Mg Tablet Daily Active [facility] Allergies, Adverse Reactions, Alerts Substance Category Reaction Severity Reaction type Status Date Reported Comments Source Ciprofloxacin Severe Allergy to Substance Active 06/14/2017 [facility] Immunizations Immunization Date Given Site Status Last Updated Comments Source Results Order Name Results Value Reference Range Date Interpretation Comments Source Serum or plasma cholesterol in HDL measurement (mass/volume) Serum or plasma cholesterol in HDL measurement (mass/volume) 60 40 - 60 06/17/2017 [facility] Serum or plasma cholesterol in LDL measurement (mass/volume) Serum or plasma cholesterol in LDL measurement (mass/volume) 109 60 - 130 06/17/2017 [facility] Serum or plasma cholesterol measurement (mass/volume) Serum or plasma cholesterol measurement (mass/volume) 195 0 - 199 06/17/2017 [facility] Serum or plasma total cholesterol/cholesterol in HDL mass ratio Serum or plasma total cholesterol/cholesterol in HDL mass ratio 3.3 3.0 - 3.6 06/17/2017 [facility] Serum or plasma triglyceride measurement (mass/volume) Serum or plasma triglyceride measurement (mass/volume) 130 0 - 149 06/17/2017 [facility] Automated blood basophil count (count/volume) Automated blood basophil count (count/volume) 0.1 0.0 - 0.1 06/15/2017 [facility] Automated blood basophil count as percentage of total leukocytes Automated blood basophil count as percentage of total leukocytes 1.0 0.0 - 1.0 06/15/2017 [facility] Automated blood eosinophil count Automated blood eosinophil count 0.2 0.0 - 0.4 06/15/2017 [facility] Automated blood eosinophil count as percentage of total leukocytes Automated blood eosinophil count as percentage of total leukocytes 3.2 0.0 - 6.0 06/15/2017 [facility] Automated blood hematocrit (volume fraction) Automated blood hematocrit (volume fraction) 29.2 34.2 - 44.1 06/15/2017 [facility] Automated blood lymphocyte count as percentage ot total leukocytes Automated blood lymphocyte count as percentage ot total leukocytes 39.4 18.0 - 39.1 06/15/2017 [facility] Automated blood monocyte count as percentage of total leukocytes Automated blood monocyte count as percentage of total leukocytes 7.4 4.4 - 11.3 06/15/2017 [facility] Automated blood neutrophil count Automated blood neutrophil count 2.6 2.1 - 6.9 06/15/2017 [facility] Automated blood platelet count (count/volume) Automated blood platelet count (count/volume) 129 140 - 360 06/15/2017 [facility] Automated blood segmented neutrophil count as percentage of total leukocytes Automated blood segmented neutrophil count as percentage of total leukocytes 48.8 38.7 - 80.0 06/15/2017 [facility] Automated erythrocyte mean corpuscular hemoglobin (mass per erythrocyte) Automated erythrocyte mean corpuscular hemoglobin (mass per erythrocyte) 31.6 28 - 32 06/15/2017 [facility] Automated erythrocyte mean corpuscular hemoglobin concentration measurement (mass/volume) Automated erythrocyte mean corpuscular hemoglobin concentration measurement (mass/volume) 33.2 31 - 35 06/15/2017 [facility] Automated erythrocyte mean corpuscular volume Automated erythrocyte mean corpuscular volume 95.1 81 - 99 06/15/2017 [facility] Blood erythrocytes automated count (number/volume) Blood erythrocytes automated count (number/volume) 3.07 3.6 - 5.1 06/15/2017 [facility] Blood hemoglobin measurement (moles/volume) Blood hemoglobin measurement (moles/volume) 9.7 12.0 - 16.0 06/15/2017 [facility] Blood leukocytes automated count (number/volume) Blood leukocytes automated count (number/volume) 5.25 4.8 - 10.8 06/15/2017 [facility] Blood lymphocytes count (number/volume) Blood lymphocytes count (number/volume) 2.1 1.0 - 3.2 06/15/2017 [facility] Blood monocytes automated count (number/volume) Blood monocytes automated count (number/volume) 0.4 0.2 - 0.8 06/15/2017 [facility] Estimated glomerular filtration rate (GFR) determination Estimated glomerular filtration rate (GFR) determination null 60 06/15/2017 [facility] Free thyroxine index Free thyroxine index 0.7608 1.4 - 3.8 06/15/2017 [facility] Glucose measurement Glucose measurement 76 74 - 118 06/15/2017 [facility] Plasma globulin measurement (mass/volume) Plasma globulin measurement (mass/volume) 1.6 2.3 - 3.5 06/15/2017 [facility] Serum or plasma alanine aminotransferase measurement (enzymatic activity/volume) Serum or plasma alanine aminotransferase measurement (enzymatic activity/volume) 10 0 - 55 06/15/2017 [facility] Serum or plasma albumin measurement (mass/volume) Serum or plasma albumin measurement (mass/volume) 2.4 3.5 - 5.0 06/15/2017 [facility] Serum or plasma albumin/globulin mass ratio Serum or plasma albumin/globulin mass ratio 1.5 0.8 - 2.0 06/15/2017 [facility] Serum or plasma alkaline phosphatase measurement (enzymatic activity/volume) Serum or plasma alkaline phosphatase measurement (enzymatic activity/volume) 97 40 - 150 06/15/2017 [facility] Serum or plasma anion gap Serum or plasma anion gap 7.4 8 - 16 06/15/2017 [facility] Serum or plasma calcium measurement (mass/volume) Serum or plasma calcium measurement (mass/volume) 6.2 8.4 - 10.2 06/15/2017 [facility] Serum or plasma carbon dioxide, total measurement (moles/volume) Serum or plasma carbon dioxide, total measurement (moles/volume) 16 22 - 29 06/15/2017 [facility] Serum or plasma chloride measurement (moles/volume) Serum or plasma chloride measurement (moles/volume) 119 98 - 107 06/15/2017 [facility] Serum or plasma creatinine measurement (mass/volume) Serum or plasma creatinine measurement (mass/volume) 0.68 0.57 - 1.11 06/15/2017 [facility] Serum or plasma ferritin measurement (mass/volume) Serum or plasma ferritin measurement (mass/volume) 32.64 4.63 - 204.00 06/15/2017 [facility] Serum or plasma iron binding capacity measurement (mass/volume) Serum or plasma iron binding capacity measurement (mass/volume) 230 261 - 478 06/15/2017 [facility] Serum or plasma iron measurement (mass/volume) Serum or plasma iron measurement (mass/volume) 70 50 - 170 06/15/2017 [facility] Serum or plasma iron saturation measurement (mass fraction) Serum or plasma iron saturation measurement (mass fraction) 30 15 - 50 06/15/2017 [facility] Serum or plasma potassium measurement (moles/volume) Serum or plasma potassium measurement (moles/volume) 3.4 3.5 - 5.1 06/15/2017 [facility] Serum or plasma protein measurement (mass/volume) Serum or plasma protein measurement (mass/volume) 4.0 6.5 - 8.1 06/15/2017 [facility] Serum or plasma sodium measurement (moles/volume) Serum or plasma sodium measurement (moles/volume) 139 136 - 145 06/15/2017 [facility] Serum or plasma thyrotropin measurement by detection limit <=0.005 miu/l (units/volume) Serum or plasma thyrotropin measurement by detection limit <=0.005 miu/l (units/volume) 2.367 0.350 - 4.940 06/15/2017 [facility] Serum or plasma thyroxine (T4) measurement (mass/volume) Serum or plasma thyroxine (T4) measurement (mass/volume) 1.97 4.5 - 10.9 06/15/2017 [facility] Serum or plasma total bilirubin measurement (mass/volume) Serum or plasma total bilirubin measurement (mass/volume) 0.3 0.2 - 1.2 06/15/2017 [facility] Serum or plasma transferrin measurement (mass/volume) Serum or plasma transferrin measurement (mass/volume) 164 180 - 382 06/15/2017 [facility] Serum or plasma triiodothyronine resin uptake (T3RU) Serum or plasma triiodothyronine resin uptake (T3RU) 38.62 22.5 - 37.0 06/15/2017 [facility] Serum or plasma urea nitrogen measurement (mass/volume) Serum or plasma urea nitrogen measurement (mass/volume) 14 7 - 26 06/15/2017 [facility] Serum or plasma urea nitrogen/creatinine mass ratio Serum or plasma urea nitrogen/creatinine mass ratio 21 6 - 25 06/15/2017 [facility] Venous blood ionized calcium measurement (mass/volume) Venous blood ionized calcium measurement (mass/volume) 1.2 1.09 - 1.30 06/15/2017 [facility] Red Cell Distribution Width 13.2 11.7 - 14.4 06/15/2017 [facility] IM GRANULOCYTES % 0.2 0.0 - 1.0 06/15/2017 [facility] Absolute Immature Granulocyte (auto 0.01 0 - 0.1 06/15/2017 [facility] Aspartate Amino Transf (AST/SGOT) 9 5 - 34 06/15/2017 [facility] Capillary blood glucose measurement by glucometer (mass/volume) Capillary blood glucose measurement by glucometer (mass/volume) 96 70 - 120 06/15/2017 [facility] Serum or plasma creatine kinase MB measurement (mass/volume) Serum or plasma creatine kinase MB measurement (mass/volume) 2.20 0 - 5.0 06/14/2017 [facility] Serum or plasma creatine kinase measurement (enzymatic activity/volume) Serum or plasma creatine kinase measurement (enzymatic activity/volume) 135 29 - 168 06/14/2017 [facility] Troponin I measurement by highly sensitive enzyme immunoassay Troponin I measurement by highly sensitive enzyme immunoassay null 0 - 0.300 06/14/2017 [facility] Automated urine sediment leukocyte count by microscopy (number/high power field) Automated urine sediment leukocyte count by microscopy (number/high power field) null 0 - 5 06/14/2017 [facility] Bacteria detection in urine sediment by light microscopy Bacteria detection in urine sediment by light microscopy FEW NONE 06/14/2017 [facility] Epithelial cells detection in urine sediment by light microscopy Epithelial cells detection in urine sediment by light microscopy RARE NONE 06/14/2017 [facility] Erythrocytes detection in urine sediment by light microscopy Erythrocytes detection in urine sediment by light microscopy null 0 - 5 06/14/2017 [facility] Specific gravity of Urine by Test strip Specific gravity of Urine by Test strip 1.020 1.010 - 1.025 06/14/2017 [facility] Urine clarity Urine clarity CLEAR CLEAR 06/14/2017 [facility] Urine color determination Urine color determination YELLOW YELLOW 06/14/2017 [facility] Urine erythrocytes detection Urine erythrocytes detection TRACE NEGATIVE 06/14/2017 [facility] Urine glucose detection Urine glucose detection NEGATIVE NEGATIVE 06/14/2017 [facility] Urine ketones detection by automated test strip Urine ketones detection by automated test strip NEGATIVE NEGATIVE 06/14/2017 [facility] Urine leukocyte esterase detection by dipstick Urine leukocyte esterase detection by dipstick NEGATIVE NEGATIVE 06/14/2017 [facility] Urine nitrite detection Urine nitrite detection NEGATIVE NEGATIVE 06/14/2017 [facility] Urine pH measurement by automated test strip Urine pH measurement by automated test strip 6 5 - 7 06/14/2017 [facility] Urine protein measurement by test strip (mass/volume) Urine protein measurement by test strip (mass/volume) NEGATIVE NEGATIVE 06/14/2017 [facility] Urine total bilirubin measurement (mass/volume) Urine total bilirubin measurement (mass/volume) NEGATIVE NEGATIVE 06/14/2017 [facility] Urine urobilinogen measurement by test strip (mass/volume) Urine urobilinogen measurement by test strip (mass/volume) 0.2 0.2 - 1 06/14/2017 [facility] Activated partial thromboplastin time (aPTT) in platelet poor plasma bycoagulation assay Activated partial thromboplastin time (aPTT) in platelet poor plasma bycoagulation assay 22.8 23.8 - 35.5 06/14/2017 [facility] INR in Platelet poor plasma by Coagulation assay INR in Platelet poor plasma by Coagulation assay 1.00 06/14/2017 [facility] Prothrombin time (PT) in platelet poor plasma by coagulation assay Prothrombin time (PT) in platelet poor plasma by coagulation assay 12.4 11.9 - 14.5 06/14/2017 [facility] Chemistry CHOLESTEROL 191 mg/dl - 199 07/17/2014 [facility] Chemistry TRIGLYCERIDE 94 mg/dl - 149 07/17/2014 [facility] Chemistry HDL 73 mg/dl >=61 07/17/2014 [facility] Chemistry LDL 99 mg/dl - 99 07/17/2014 [facility] Chemistry SODIUM 146 MEQ/L mmol/L 135 - 145 07/17/2014 [facility] Chemistry POTASSIUM 4.3 MEQ/L mmol/L 3.5 - 5.1 07/17/2014 [facility] Chemistry CREATININE 1.0 mg/dL 0.5 - 1.4 07/17/2014 [facility] Chemistry BUN 15 mg/dL 7 - 22 07/17/2014 [facility] Chemistry BUN/CREAT 15 6 - 25 07/17/2014 [facility] Chemistry ALBUMIN 3.7 g/dL 3.5 - 5.0 07/17/2014 [facility] Chemistry CALCIUM 9.3 mg/dL 8.5 - 10.5 07/17/2014 [facility] Chemistry SGPT (ALT) 18 U/L 0 - 65 07/17/2014 [facility] Chemistry SGOT (AST) 9 U/L 0 - 37 07/17/2014 [facility] Chemistry ALK PHOS 152 U/L 39 - 136 07/17/2014 [facility] Urinalysis UA COLOR Light Yellow 07/17/2014 [facility] Urinalysis BACTERIA URN Occasional 07/17/2014 [facility] Chemistry TSH 0.044 uIU/mL 0.360 - 3.740 06/16/2014 [facility] Chemistry TSH 0.044 uIU/mL 0.360 - 3.740 06/16/2014 [facility] Vital Signs Vital Sign Value Date Comments Source Weight 180 07/16/2014 [facility] Heart Rate 60 07/16/2014 [facility] Temperature Oral (F) 98.5 F 07/16/2014 [facility] Respitory Rate 17 07/16/2014 [facility] Systolic (mm Hg) 163 07/16/2014 [facility] Diastolic (mm Hg) 97 07/16/2014 [facility] Weight 178 06/16/2014 [facility] Height 69 06/16/2014 [facility] Temperature Oral (F) 98.7 F 06/16/2014 [facility] Systolic (mm Hg) 155 06/16/2014 [facility] Diastolic (mm Hg) 92 06/16/2014 [facility] Heart Rate 84 06/16/2014 [facility] Respitory Rate 16 06/16/2014 [facility] Encounters Location Location Details Encounter Type Encounter Number Reason For Visit Attending Provider ADM Date DC Date Status Source [facility] Lab Report [id number] Nomi Castillo MD 06/16/2014 06/16/2014 Medical [facility] Office Visit [id number] Nomi Castillo MD 06/16/2014 06/16/2014 Medical [facility] Office Visit [id number] Nomi Castillo MD 07/16/2014 07/16/2014 Medical [facility] Lab Report [id number] Nomi Castillo MD 07/17/2014 07/17/2014 Medical [facility] Outpatient [id number] NOMI CASTILLO 10/16/2014 Active [facility] Outpatient [id number] NOMI CASTILLO 11/16/2014 Active [facility] [id number] NOMI LINH 02/01/2015 Active [facility] [id number] NOMI LINH 02/15/2015 Active [facility] [id number] NOMI LINH 09/21/2015 Active [facility] [id number] NOMI LINH 06/08/2016 Active [facility] [id number] NOMI LINH 07/07/2016 Active [id number] 07/11/2016 Active [facility] [id number] OTHER VISIT 07/19/2016 Active [facility] [id number] NOMI LINH 08/16/2016 Active [facility] [id number] [facility] 08/28/2016 Active [facility] [id number] NOMI LINH 09/28/2016 Active [facility] [id number] NOMI LINH 11/16/2016 Active [facility] [id number] NOMI LINH 11/21/2016 Active [facility] [id number] NOMI LINH 12/19/2016 Active [facility] [id number] NOMI LINH 12/21/2016 Active [facility] [id number] NOMI LINH 03/20/2017 Active [facility] [id number] NOMI LINH 04/23/2017 Active [facility] [id number] NOMI LINH 06/13/2017 Active [facility] (obs) [id number] ÁNGELA VILLALTA MD 06/14/2017 06/17/2017 [facility] Outpatient [id number] NOMI LINH 06/28/2017 Active [facility] [id number] NOMI LINH 07/24/2017 Active [facility] [id number] NOMI LINH 10/31/2017 Active [facility] [id number] NOMI LINH 01/22/2018 Active [facility] [id number] NOMI LINH 04/22/2018 Active [facility] Procedures Procedure Code Date Perfomer Comments Source Computed tomography of brain without radiopaque contrast [id number] 06/14/2017 [facility]
--- OUTSIDE RECORDS SUMMARY | 2018-02-01 11:54 | XMS REPORT | Continuity of Care Document ---
Author Author [facility] Address Unknown Phone Unavailable Care Team Providers Care Family Preservation Caseworker Name Role Phone MD Jonathan, Felisa HICKS Unavailable Insurance Providers Payer name Policy type / Coverage type Policy ID Covered constitution party ID Policy Son [place] [employer] [facility] - [employer] - MEDICARE COMPLETE - POS ([employer] [facility] - [employer] - MEDICARE COMPLETE - POS ([employer] [place] [employer] [place] [employer] [place] [employer] [place] [employer] [place] [employer] [place] [employer] Encounters Encounter Performer Location Date Office Visit Felisa Castillo MD [facility] Jun 16, 2014 Problems Problem Effective Dates Problem Status GOITER Jun 16, 2014 Active HYPOTHYROIDISM Jun 16, 2014 Active HYPERTENSION - BENIGN ESSENTIAL Jun 16, 2014 Active PUPILLARY ABNORMALITIES Jun 16, 2014 Active SKIN LESION Jun 16, 2014 Active Procedures Date Description Comments Jun 16, 2014 smoking status Never smoker Medications Medication Instructions Start Date Status LEVOTHYROXINE SODIUM 175 MCG TABS one tablet daily Jun 16, 2014 Active PEXEVA 20 MG TABS three tablets at bedtime Jun 16, 2014 Active CLONAZEPAM 1 MG TABS one tablets twicw daily Jun 16, 2014 Active SAPHRIS 10 MG SUBL one tablet subl daily Jun 16, 2014 Active OXCARBAZEPINE 300 MG TABS one tablet twice daily Jun 16, 2014 Active AMLODIPINE BESYLATE 5 MG TABS 1 tablet daily Jun 16, 2014 Active Vital Signs Date Description [...] observation BP ADAMS #2 99 mm Hg Results Date Description Test Name Value Reference Interpretation Status Jun 16, 2014 thyroid stimulating hormone, serum TSH 0.044 uIU/mL 0.360-3.740 Low
--- OUTSIDE RECORDS SUMMARY | 2018-02-01 11:54 | XMS REPORT | Continuity of Care Document ---
Author Author [facility] Organization [facility] Address Unknown Phone Unavailable Care Team Providers Care [employer] Cashier Name Role Phone MD Jonathan, Felisa HICKS Unavailable Insurance Providers Payer name Policy type / Coverage type Policy ID Covered alliance party ID Policy Son [place] [employer] [facility] - [employer] - MEDICARE COMPLETE - POS ([employer] - [employer] - MEDICARE COMPLETE - POS ([employer] [employer] [place] [employer] [place] [employer] [place] [employer] MEDIC[place]: [employer] [place] [employer] [place] [employer] [place] [employer] [place] [employer] Encounters Encounter Performer Location Date Lab Report Felisa Castillo MD [facility] July 17, 2014 Problems Problem Effective Dates Problem Status [...] a day Jun 16, 2014 Active ZOSTAVAX 03313 UNT/0.65ML SOLR Administer 0.65 mL intramuscular x1 [...]
--- OUTSIDE RECORDS SUMMARY | 2018-02-01 11:54 | XMS REPORT | Continuity of Care Document ---
Author Author [facility] Address Unknown Phone Unavailable Care Team Providers Care [employer] Driver Name Role Phone MD Jonathan, Felisa HICKS Unavailable Insurance Providers Payer name Policy type / Coverage type Policy ID Covered democrat ID Policy Son [place] [employer] [facility] - [employer] - MEDICARE COMPLETE - POS ([employer] [facility] - AARP - MEDICARE COMPLETE - POS ([employer] MED[place]: [employer] MEDIC[place]: [employer] [place] [employer] [place] [employer] [place] [employer] [place] [employer] Encounters Encounter Performer Location Date Lab Report Felisa Castillo MD [facility] Jun 16, 2014 Problems Problem Effective Dates [...] 1 tablet daily Jun 16, 2014 Active LEVOTHYROXINE SODIUM 150 MCG TABS Take 1 pill by mouth once a day Jun 16, 2014 Active Vital Signs Date [...]
[2018-02-01] MEDS ORDERED: ALBUTEROL/IPRATROPIUM 3 ML NEB NEB ONE (12:15)
[2018-02-01 13:14] LABS: STREPTOCOCCUS GRP A ANTIGEN NEGATIVE (NEGATIVE)
[2018-02-01 13:23] LABS: INFLUENZAE A&B ANTIGEN (RAPID) NEGATIVE (NEGATIVE)
--- NOTE | 2018-02-01 13:42 | Diagnostic Imaging Report ---
EXAM: CHEST 2 VIEWS, PA and lateral DATE: 02/01/2018 12:14 PM Time stamp on exam: 1:25 PM INDICATION: Cough and congestion COMPARISON: 06/14/2017 FINDINGS: LINES/TUBES: Left chest wall dual lead cardiac device with intact leads. LUNGS: No consolidations or edema. PLEURA: No effusions or pneumothorax. HEART AND MEDIASTINUM: Normal size and contour. BONES AND SOFT TISSUES: No acute findings. IMPRESSION: No acute thoracic abnormality. Signed by: Dr. Branden Sadnerson DO on 02/01/2018 1:39 PM
== END 2018-02-01 15:05 | disposition home or self-care (01) ==
LOC: ER 11:50
DX: R05 Cough (principal); J20.9 Acute bronchitis, unspecified; I10 Essential (primary) hypertension; E11.9 Type 2 diabetes mellitus without complications; E78.00 Pure hypercholesterolemia, unspecified
CPT/HCPCS: 71046; 83518; 87070; 87400; 93005; 99284